=== PATIENT | male | born 1960 | race African-American/Black ===

== ENCOUNTER 2020-07-22 02:24 | Observation (INO) | payer MEDICARE, MEDICAID ==
[~2020-07-22] VITALS: Ht 165.1 cm; Wt 53.0 kg
--- NOTE | 2020-07-22 02:24 | NUR ---
BY EMS TO ROOM
[2020-07-22] MEDS ORDERED: DILANTIN100 MG PO (03:03)
[2020-07-22] MEDS ORDERED: NEURONTIN100 MG PO (03:05)
[2020-07-22 03:12] LABS: IMMATURE GRANULOCYTES 0.3 % (0.0-5.0); MEAN CELL VOLUME 79.2 fL CALC (80.0-100.0); MEAN CORPUSCULAR HGB 25.1 pG CALC (26.0-32.0); MEAN CORPUSCULAR HGB CONC 31.7 g/dL CAL (32.0-36.0); NEUT# 3.62 thou/uL (1.82-7.42); RED BLOOD COUNT 4.51 mill/uL (4.70-6.10); RED CELL DISTRI WIDTH 15.3 % (11.5-15.5)
[2020-07-22 03:13] LABS: HEMATOCRIT 35.7 % (39.0-50.0); HEMOGLOBIN 11.3 g/dl (14.0-18.0)
--- NOTE | 2020-07-22 03:15 | NUR ---
PT YELLING OUT IN ROOM...JUMPING ALL OVER THE BED...SHAKING AND STATING PAIN JUST GOT WORSE. RR 28. ENCOURAGED PT TO CALM AND RELAX...BUT CONTINUED TO GRAB CHEST. STATES HE PUT AN ICE PACK ON IT AT HOME AND IT HELPED. UNABLE TO CALM PT. DR. GUERRERO TO BEDSIDE. REPEAT EKG ORDERED...BUT MUST GIVE PAIN MED FIRST SO WE WILL BE ABLE TO GET GOOD EKG.
[2020-07-22 03:17] LABS: ALBUMIN 3.8 g/dL (3.2-5.0); ALKALINE PHOSPHATASE 92 u/l (38-126); AMYLASE 72 u/l (30-110); ANION GAP 9 (6-22 (CALC)); BUN 12 mg/dL (9-20); BUN/CREATININE RATIO 18 (12-20 (CALC)); CARBON DIOXIDE 29 mmol/l (22-30); CHLORIDE 99 mmol/l (95-108); CREATININE 0.7 mg/dL (0.7-1.3); GFR > 60 ML/MIN (>=60 (CALC)); GFR FOR AFR.AMER. > 60 ML/MIN (>=60 (CALC)); LIPASE 82 u/l (23-300); POTASSIUM 3.9 mmol/l (3.5-5.1); SODIUM 133 mmol/l (137-146); TOTAL PROTEIN 6.9 g/dL (6.3-8.2)
[2020-07-22 03:19] LABS: BILIRUBIN, TOTAL 0.8 mg/dL (0.0-1.4); SGOT/AST 67 u/l (17-59)
--- NOTE | 2020-07-22 03:20 | NUR ---
UPON RETURNING TO ROOM. PT RESTING. CALM. RR RATE 18. STATES FEELS BETTER. 05/09
[2020-07-22 03:30] LABS: MYOGLOBIN 34 ng/mL (0 - 121)
[2020-07-22 03:32] LABS: PROTHROMBIN TIME 10.4 SECONDS (9.0-12.5)
--- NOTE | 2020-07-22 03:47 | NUR ---
PT RESTING. FEELS BETTER. NOW ON PHONE WITH FAMILY.
--- NOTE | 2020-07-22 04:30 | NUR ---
PT RETURNED FROM CT. VSS. RESTING. FEELS MUCH BETTER. . ADVISED OF WAIT TIME FOR DISPO.
--- NOTE | 2020-07-22 05:10 | NUR ---
PT RESTING. NO C/O.
[2020-07-22 05:49] LABS: URINE BILIRUBIN - DIPSTICK NEGATIVE (NEGATIVE); URINE BLOOD DIPSTICK NEGATIVE (NEGATIVE); URINE COLOR YELLOW; URINE GLUCOSE - DIPSTICK NEGATIVE (NEGATIVE); URINE KETONE NEGATIVE (NEGATIVE); URINE LEUK ESTERASE NEGATIVE (NEGATIVE); URINE NITRITE - DIPSTICK NEGATIVE (Negative); URINE PH 5.5 (4.5-8.0); URINE PROTEIN - DIPSTICK NEGATIVE (NEG-TRACE); URINE SPECIFIC GRAVITY <=1.005
--- NOTE | 2020-07-22 06:15 | NUR ---
PT SLEEPING. VSS. CM SR.
--- NOTE | 2020-07-22 07:04 | NUR ---
REPORT TO MED-SURG/MARV
[2020-07-22 07:44] VITALS: BP 120/76
--- NOTE | 2020-07-22 07:44 | NUR ---
PT TRANSPORTED TO ROOM VIA WC WITH TELE MONITOR IN PLACE IN STABLE CONDITION AT THIS TIME
--- NOTE | 2020-07-22 08:07 | NUR ---
RECEIVED REPORT FROM ARMANDO IN THE ER. PT TRASFERRED TO THE FLOOR VIA WHEELCHAIR. PT IS ALERT AND ORIENTED AND ABLE TO MAKE NEEDS KNOWN. SKIN WARM TO TOUCH. BOWEL SOUNDS ACTIVE IN ALL QUADRANTS. LUNG SOUNDS ARE CLEAR AND EQUAL. PT IS AMBULATORY WITH STEADY GAIT AND BALANCE. PT DENIES CHEST PAIN AT THIS TIME. VITALS ARE STABLE. NO COUGH OR CONGESTION NOTED. RESPIRATION ARE EVEN AND NON LABORED. NO COUGH NOTED AND DENIES HEADACHE. BEDSIDE EQUIPMENT EXPLAINED TO PT AND ABLE TO DEMONSTRATE HOW TO USE BEDSIDE EQUIPMENT.
--- NOTE | 2020-07-22 10:31 | NUR ---
PT COMPLAINED OF THROBBIBG PAIN IN CHEST AT 5 ON SCALE OF 1-10 WITH 10 GREATEST. NOT RADIATING ANYWHERE. MD MADE AWARE AND NEW ORDER FOR STAT EKG BY RESPIRATORY.
[2020-07-22 11:13] VITALS: BP 131/77
[2020-07-22 15:20] VITALS: BP 136/96
[2020-07-22 19:28] VITALS: BP 112/62
--- NOTE | 2020-07-22 20:00 | NUR ---
PATIENT ALERT, VEBRAL, ABLE TO MAKE NEEDS KNOWN. ABLE TO TOLERATE MEDS WELL WHOLE. CONT ON IV ABT THERAPY RELATED TO BRONCHITIS WITH NO SIDE EFFECTS NOTED THUS FAR--AFEBRILE. PIV SITE PATENT TO LEFT AC--FLUSHES WELL--SITE UNREMARKABLE. CONT OF BOWEL AND BLADDER. ABLE TO AMBULATE ABOUT ON OWN AD PAIGE IN ROOM. TELEMETRY IN PLACE--SINUS TACH @ 102. DENIES ANY PAIN AT TIME OF ASSESSMENT. WILL CONT TO MONITOR FOR ANY FURTHER CHANGES.
--- NOTE | 2020-07-23 | NUR ---
PATIENT RESTING SOUNDLY IN BED WITH EYES CLOSED AT THIS TIME. NO APPARENT DISTRESS NOTED--NO C/OS OF CHEST PAIN--TELEMETRY IN PLACE--SR @ 88. WILL CONT TO MONITOR FOR FURTHER CHANGES.
[2020-07-23 00:04] VITALS: BP 108/72
--- NOTE | 2020-07-23 04:00 | NUR ---
PATIENT UP TO BATHROOM AT THIS TIME--STATES HE SLEPT WELL THROUGHOUT THE NIGHT--DENIES PAIN OR DISCOMFORT. TELEMETRY IN PLACE--SINUS TACH @ 101--NO DISTRESS NOTED. WILL CONT TO MONITOR FOR ANY FURTHER CHANGES.
[2020-07-23 04:10] VITALS: BP 130/74
[2020-07-23 05:45] LABS: HEMATOCRIT 35.2 % (39.0-50.0); HEMOGLOBIN 10.7 g/dl (14.0-18.0); MEAN CELL VOLUME 80.7 fL CALC (80.0-100.0); MEAN CORPUSCULAR HGB 24.5 pG CALC (26.0-32.0); MEAN CORPUSCULAR HGB CONC 30.4 g/dL CAL (32.0-36.0); RED BLOOD COUNT 4.36 mill/uL (4.70-6.10); RED CELL DISTRI WIDTH 15.2 % (11.5-15.5)
[2020-07-23 06:04] LABS: CHOLESTEROL HDL RATIO 2.1 (<4.4 (CALC))
[2020-07-23 06:13] LABS: ANION GAP 11 (6-22 (CALC)); BUN 11 mg/dL (9-20); BUN/CREATININE RATIO 19 (12-20 (CALC)); CARBON DIOXIDE 26 mmol/l (22-30); CHLORIDE 98 mmol/l (95-108); CREATININE 0.6 mg/dL (0.7-1.3); GFR > 60 ML/MIN (>=60 (CALC)); GFR FOR AFR.AMER. > 60 ML/MIN (>=60 (CALC)); POTASSIUM 4.2 mmol/l (3.5-5.1); SODIUM 131 mmol/l (137-146)
[2020-07-23 07:12] VITALS: BP 121/72
--- NOTE | 2020-07-23 07:12 | NUR ---
RECIEVED REPORT FROM JEROME FELIPE. PT RESTING IN LOW FOWLERS SPOTIION UPON ENTERING ROOM. INTRODUCED SELF TO PT AND DISCUSSED POC.ASESSMENT AND VITALS COMPLETED AT THIS TIME. RESPIRATIONS ARE EVEN AND UNLABORED WITH NO SIGNS OF DISTRESS. LUNG SOUND SRAE CLEAR. HEART RHYTHM IS NORMAL WITH TELE IN PLACE. BOWEL SOUNDS ARE ACTIVE IN ALL QUADRANTS, LAST REPORTED BM 07/22/20. RADIAL AND PEDAL PULSES ARE STRONG WITH NORMAL CAPILLARY REFILL. #22G IN LAC FLUSHED, SITE APPEARS TO BE LEAKING. NEW SITE TO BE STARTED. PT COMPLAINS OF 6/10 PRESSURE IN CHEST. PT INFORMS WRITTER THAT THE PAIN WILL BE IN "HIS CHEST AND THEN TO TO HIS SIDE AND THEN TO ABD". MD TO BE NOTIFIED OF PT PAIN SCALE. PT DENIES ANY OTHER PAINS OR DISCOMFORTS AT THSI TIME. ALL SAF[employer] PRECAUTIONS ARE IN PLACE WITH CALL LIGHT IN REACH. WILL CONTINUE TO MONITOR
--- NOTE | 2020-07-23 08:44 | NUR ---
DR LLAMAS AT BEDSIDE DISCUSSING POC WITH PT
[2020-07-23] MEDS ORDERED: METHIMAZOLE5 MG PO (10:05)
[2020-07-23] MEDS ORDERED: ZITHROMAX250 MG PO (10:05)
[2020-07-23] MEDS ORDERED: LOPRESSOR25 MG PO (10:05)
[2020-07-23 10:30] VITALS: BP 118/73
--- NOTE | 2020-07-23 11:54 | NUR ---
EDUCATED PT ON DISCHARGE INSTRUCTIONS AND NEW MEDICTAIONS LOPRESSOR, METHIMAZOLE, AND ZITHROMAX. PT VERBALIZED UNDERSTANDING. IV REMOVED WITH CATHATER STILL INTACT. PT TOLERATED WELL. PT REQUEST TO EAT LUNCH FIRST. ALL SAFTE[employer] PRECAUTIONS ARE IN PLACE WITH CALL LIGHT IN REACH. WILL CONTINUE TO MONITOR
--- NOTE | 2020-07-23 12:28 | NUR ---
Discharge instructions given. Patient verbalizes understanding of same. Discharged in stable condition via Wheelchair to Home with staff. All belongings sent with pt. PT DISCHARGE WITH ALL BELONGINGS AND DISCHARGE INSTRUCTIONS VIA WHEELCHAIR IN STABLE CONDITION ACCOMPAINED BY FUAD KURTZ
== END 2020-07-23 12:27 | disposition home or self-care (01) ==
LOC: ED 02:24 → ED-I 05:50 → ED 06:19 → MS2 06:20
PROVIDERS: Emergency Medicine; Nurse Practitioner; ADMIT Internal Medicine; ATTEND Internal Medicine
DX: R07.9 Chest pain, unspecified (principal); R00.0 Tachycardia, unspecified; R91.8 Other nonspecific abnormal finding of lung field; E05.90 Thyrotoxicosis, unspecified without thyrotoxic crisis or storm; F17.210 Nicotine dependence, cigarettes, uncomplicated; G40.909 Epilepsy, unspecified, not intractable, without status epilepticus; Z20.828 Contact with and (suspected) exposure to other viral communicable diseases
CPT/HCPCS: G0378; Q9967

== ENCOUNTER → 2021-08-02 | Outpatient (REF) | payer MEDICARE, MEDICAID ==
[~2021-08-02] MED LIST: DILANTIN100 MG PO; LOPRESSOR25 MG PO; METHIMAZOLE5 MG PO; NEURONTIN100 MG PO; ZITHROMAX250 MG PO
== END | disposition home or self-care (01) ==
LOC: CT 07-22 13:00
PROVIDERS: ATTEND Internal Medicine
DX: R91.8 Other nonspecific abnormal finding of lung field (principal)
CPT/HCPCS: Q9967

== ENCOUNTER 2024-05-31 12:03 | Emergency (ER) | payer MEDICARE, MEDICAID ==
[~2024-05-31] VITALS: Ht 165.1 cm; Wt 58.0 kg
[2024-05-31] MEDS ORDERED: MULTIPLE VITAMIN 10 ML,THIAMINE HCL 100 MG in DEXTROSE 5% / 0.9% NACL 1,000 ML IV ONE (12:10)
[2024-05-31 12:27] VITALS: BP 125/80
== END 2024-05-31 12:28 | disposition left against medical advice (07) ==
LOC: ED 12:03
DX: F10.129 Alcohol abuse with intoxication, unspecified (principal); Z53.29 Procedure and treatment not carried out because of patient's decision for other reasons; Z72.0 Tobacco use

== ENCOUNTER 2024-09-06 23:30 | Emergency (ER) | payer MEDICARE, MEDICAID ==
[~2024-09-06] VITALS: Ht 165.1 cm; Wt 65.8 kg
[2024-09-06] MEDS ORDERED: NITROGLYCERIN 2% OINT UD 1 GM/PAK TD ONE (23:40)
[2024-09-06 23:51] VITALS: BP 106/78
[2024-09-07] VITALS (13 sets, daily range): BP systolic 65–110; BP diastolic 36–71
[2024-09-07 00:12] LABS: BASO% 0.6 % (0-3); EOS% 6.8 % (0-8); HEMATOCRIT 35.6 % (39.0-50.0); HEMOGLOBIN 11.3 g/dl (14.0-18.0); IMMATURE GRANULOCYTES 0.4 % (0.0-5.0); LYMPH% 36.1 % (15-41); MEAN CORPUSCULAR HGB CONC 31.7 g/dL CAL (32.0-36.0); MONO% 5.8 % (2-13); NEUT# 3.63 thou/uL (1.82-7.42); NEUT% 50.3 % (42-76); RED BLOOD COUNT 4.34 mill/uL (4.70-6.10); RED CELL DISTRI WIDTH 15.2 % (11.5-15.5)
[2024-09-07 00:22] LABS: ALBUMIN 3.9 g/dL (3.2-5.0); ALKALINE PHOSPHATASE 41 u/l (38-126); ANION GAP 8 (6-22 (CALC)); BILIRUBIN, TOTAL 0.5 mg/dL (0.2-1.3); BUN 15 mg/dL (8-23); BUN/CREATININE RATIO 17 (12-20 (CALC)); CARBON DIOXIDE 26 mmol/l (22-30); CHLORIDE 110 mmol/l (95-108); CREATININE 0.9 mg/dL (0.7-1.3); ESTIMATED GFR 95 ML/MIN (>=90 (CALC)); POTASSIUM 4.8 mmol/l (3.5-5.1); SGOT/AST 34 u/l (19-48); SODIUM 139 mmol/l (137-146); TOTAL PROTEIN 6.8 g/dL (6.3-8.2)
[2024-09-07 00:24] LABS: D-DIMER 0.82 mg/L (0.19-0.60)
[2024-09-07 00:30] LABS: ACT PARTIAL THROMBO TIME 28.8 SECONDS (20.0-32.5)
[2024-09-07 00:42] LABS: URINE BILIRUBIN - DIPSTICK Negative (NEGATIVE); URINE BLOOD DIPSTICK Negative (NEGATIVE); URINE COLOR Yellow; URINE GLUCOSE - DIPSTICK Negative (NEGATIVE); URINE KETONE Negative (NEGATIVE); URINE LEUK ESTERASE Negative (NEGATIVE); URINE NITRITE - DIPSTICK Negative (Negative); URINE PROTEIN - DIPSTICK Negative (NEG-TRACE); URINE UROBILINOGEN - DIPSTICK 0.2 E.U./dL (0.2)
== END 2024-09-07 02:50 | disposition left against medical advice (07) ==
LOC: ED 23:30
PROVIDERS: Emergency Medicine
DX: R07.9 Chest pain, unspecified (principal); F14.10 Cocaine abuse, uncomplicated; F10.90 Alcohol use, unspecified, uncomplicated; I42.9 Cardiomyopathy, unspecified; I48.91 Unspecified atrial fibrillation; F17.210 Nicotine dependence, cigarettes, uncomplicated; G40.909 Epilepsy, unspecified, not intractable, without status epilepticus; R06.02 Shortness of breath